=== PATIENT | male | born 1975 | race Caucasian/White ===

== ENCOUNTER 2018-02-09 22:27 | Emergency (ER) | payer MEDICARE, MEDICAID ==
--- NOTE | 2018-02-09 23:26 | EKG REPORT ---
SEVERITY:- ABNORMAL ECG - SINUS RHYTHM CONSIDER ANTEROSEPTAL INFARCT OLD : Confirmed by: Polo Avina MD 09-Feb-2018 23:25:11
--- NOTE | 2018-02-09 23:39 | ER Document Report ---
ED General - General Chief Complaint: Irregular Pulse Stated Complaint: THROAT ISSUES Time Seen by Provider: 02/09/18 22:32 Notes: Patient is a 42-year-old male with a past medical history of PVCs status post ablation 12 days ago at [facility] who presents with an episode of palpitations that started shortly prior to arrival and has since spontaneously resolved. Patient states that he was sitting in his chair when he spontaneously began to feel a fluttering sensation in his neck and chest. He states this feels similar to when he had episodes of palpitations in the past but he had not had one since having the ablation. His at the bedside notes that she feels he becomes quite anxious with these episodes. The patient notes that he was nauseated with it but did not have any chest pain, shortness of breath, diaphoresis or syncope. He did contact EMS and was subsequently transported to the hospital. At the time of my assessment he denies any complaints, states he feels quite well and would like to go home. He does admit to restarting caffeine use today and drank a large amount of tea shortly prior to the onset of this episode. He does admit that he has been told by his psychiatric clinician to discontinue caffeine use. TRAVEL OUTSIDE OF THE [place] IN LAST 30 DAYS: No - Related Data Allergies/Adverse Reactions: No Known Allergies Allergy (Unverified 02/09/18 22:57) Past Medical History - General Information source: Patient - Social History Smoking Status: Current Every Day Smoker Cigarette use (# per day): Yes - 2 packs per day Chew tobacco use (# tins/day): No Smoking Education Provided: Yes - Smoking cessation counseling was provided for 4 minutes at the bedside Frequency of alcohol use: Occasional Drug Abuse: None Lives with: Spouse/Significant other Family History: Reviewed & Not Pertinent Patient has suicidal ideation: No Patient has homicidal ideation: No Renal/ Medical History: Denies: Hx Peritoneal Dialysis Past Surgical History: Reports: Hx Cardiac Surgery Review of Systems - Review of Systems Notes: Constitutional: Negative for fever. HENT: Negative for sore throat. Eyes: Negative for visual changes. Cardiovascular: Positive for palpitations now resolved Respiratory: Negative for shortness of breath. Gastrointestinal: Negative for abdominal pain, vomiting or diarrhea. Genitourinary: Negative for dysuria. Musculoskeletal: Negative for back pain. Skin: Negative for rash. Neurological: Negative for headaches, weakness or numbness. 10 point ROS negative except as marked above and in HPI. Physical Exam - Vital signs Vitals: Temp Pulse Resp BP Pulse Ox 99.1 F 89 16 131/73 H 97 02/09/18 22:44 02/09/18 22:44 02/09/18 22:44 02/09/18 22:44 02/09/18 22:44 Interpretation: Normal Notes: PHYSICAL EXAMINATION: GENERAL: Well-appearing, well-nourished and in no acute distress. HEAD: Atraumatic, normocephalic. EYES: Pupils equal round and reactive to light, extraocular movements intact, sclera anicteric, conjunctiva are normal. ENT: nares patent, oropharynx clear without exudates. Moist mucous membranes. NECK: Normal range of motion, supple without lymphadenopathy LUNGS: Breath sounds clear to auscultation bilaterally and equal. No wheezes rales or rhonchi. HEART: Regular rate and rhythm without murmurs ABDOMEN: Soft, nontender, normoactive bowel sounds. No guarding, no rebound. No masses appreciated. EXTREMITIES: Normal range of motion, no pitting or edema. No cyanosis. NEUROLOGICAL: No focal neurological deficits. Moves all extremities spontaneously and on command. PSYCH: Normal mood, normal affect. SKIN: Warm, Dry, normal turgor, no rashes or lesions noted. Course - Re-evaluation Re-evalutation: 02/09/18 23:38 Patient presents with palpitations but is in no acute distress. Vitals within normal limits at time of arrival. EKG unremarkable with a normal sinus rhythm. Laboratories are unremarkable. Patient denies any chest pain, shortness of breath, or vomiting. Patient did recently have an ablation 2 weeks ago and recently restarted using caffeine to which he attributes his episode tonight. at this time based on exam and history do not suspect a new onset arrhythmia, ACS, acute pulmonary embolus, aortic dissection. Patient encouraged to follow- up with their primary care physician as well as cardiology. At this time will discharge with return precautions and follow-up recommendations. Verbal discharge instructions given a the bedside and opportunity for questions given. Medication warnings reviewed. Patient is in agreement with this plan and has verbalized understanding of return precautions and the need for primary care follow-up in the next 24-72 hours. - Vital Signs Vital signs: Temp Pulse Resp BP Pulse Ox 97.9 F 76 17 119/86 H 94 02/10/18 00:45 02/10/18 00:45 02/10/18 00:45 02/10/18 00:45 02/10/18 00:45 - Laboratory Result Diagrams: 02/09/18 21:48 Laboratory results interpreted by me: 02/09/18 21:48 Potassium 3.5 L - EKG Interpretation by Me Additional EKG results interpreted by me: 02/10/18 03:44 Sinus rhythm. Rate 88. No ST elevations or depressions. QTC is 431. Discharge - Discharge Clinical Impression: Palpitations, Premature ventricular contractions Condition: Good Disposition: HOME, SELF-CARE Additional Instructions: Please follow-up with your primary care doctor or a psychiatric clinician regarding your palpitations. Return if you develop chest pain, shortness of breath, pass out, or have any other symptoms that are worrisome to you. Referrals: FILI GRIFFITH, PHD [Primary Care Provider] - Follow up as needed
[2018-02-09 23:56] LABS: ANION GAP 14 (5-19); BLOOD UREA NITROGEN 8 mg/dL (7-20); CALCIUM 9.7 mg/dL (8.4-10.2); CARBON DIOXIDE 25 mmol/L (22-30); CHLORIDE 106 mmol/L (98-107); GLUCOSE 92 mg/dL (75-110); POTASSIUM 3.5 mmol/L (3.6-5.0); SODIUM 144.7 mmol/L (137-145)
[2018-02-10 00:47] VITALS: BP 119/86
== END 2018-02-10 00:47 | disposition home or self-care (01) ==
LOC: ER 22:27
DX: R00.2 Palpitations (principal); I49.3 Ventricular premature depolarization; F17.210 Nicotine dependence, cigarettes, uncomplicated
CPT/HCPCS: 36415; 80048; 84484; 93005; 93010; 99285

== ENCOUNTER 2019-06-13 17:47 | Emergency (ER) | payer OTHER, MEDICARE, MEDICAID ==
[2019-06-13] MEDS ORDERED: ASPIRIN 81 MG TABLET, CHEWABLE PO ONE (17:50)
[2019-06-13 18:11] LABS: ABSOLUTE EOSINOPHILS # (AUTO) 0.1 10^3/uL (0.0-0.6); ABSOLUTE LYMPHOCYTES (AUTO) 3.5 10^3/uL (0.5-4.7); ABSOLUTE MONOCYTES (AUTO) 0.8 10^3/uL (0.1-1.4); ABSOLUTE NEUT (AUTO) 6.4 10^3/uL (1.7-8.2); BASOPHILS % (AUTO) 0.1 % (0-2); EOSINOPHILS % (AUTO) 0.6 % (0-6); HEMATOCRIT 46.9 % (37.9-51.0); HEMOGLOBIN 16.3 g/dL (13.5-17.0); LYMPHOCYTES % (AUTO) 32.7 % (13-45); MEAN CORPUSCULAR HEMOGLOBIN 30.7 pg (27.0-33.4); MEAN CORPUSCULAR HGB CONC 34.7 g/dL (32.0-36.0); MEAN CORPUSCULAR VOLUME 89 fl (80-97); MONOCYTES % (AUTO) 7.8 % (3-13); PLATELET COUNT 262 10^3/uL (150-450); RED BLOOD COUNT 5.29 10^6/uL (4.35-5.55); RED CELL DISTRIBUTION WIDTH 13.5 % (11.5-14.0); SEGMENTED NEUTROPHILS % (AUTO) 58.8 % (42-78); TOTAL CELLS COUNTED % (AUTO) 100 %; WHITE BLOOD COUNT 10.8 10^3/uL (4.0-10.5)
--- NOTE | 2019-06-13 18:31 | ER Document Report ---
ED General - General Chief Complaint: Dizziness Stated Complaint: HEART PROBLEMS Time Seen by Provider: 06/13/19 18:20 Primary Care Provider: LISSA UNGER MD [ACTIVE STAFF] - Follow up as needed TRAVEL OUTSIDE OF THE [place] IN LAST 30 DAYS: No - HPI Notes: Patient with history of ablation for supraventricular tachycardia last January at [facility] presents for the last 2 weeks he has been having intermittent palpitations where he states he feels like his heart skips a beat and when it happens then he has a heartbeat and it makes him feel lightheaded. But he denies any chest pain. No recent cough congestion or fevers. He does not drink coffee but he drinks approximately 2 L of Pepsi daily. No recent nausea vomiting or fevers. He has a history of hypertension and GERD. He takes antihypertensives and GERD medication daily and has been compliant. - Related Data Allergies/Adverse Reactions: No Known Allergies Allergy (Unverified 02/09/18 22:57) Past Medical History - Social History Smoking Status: Unknown if Ever Smoked Family History: Reviewed & Not Pertinent Patient has suicidal ideation: No Patient has homicidal ideation: No Renal/ Medical History: Denies: Hx Peritoneal Dialysis Past Surgical History: Reports: Hx Cardiac Surgery Review of Systems - Review of Systems Constitutional: No symptoms reported EENT: No symptoms reported Cardiovascular: See HPI Respiratory: No symptoms reported Gastrointestinal: No symptoms reported Genitourinary: No symptoms reported Male Genitourinary: No symptoms reported Musculoskeletal: No symptoms reported Skin: No symptoms reported Hematologic/Lymphatic: No symptoms reported Neurological/Psychological: No symptoms reported Physical Exam - Vital signs Vitals: Resp Pulse Ox 14 98 06/13/19 17:50 06/13/19 17:50 - General General appearance: Appears well, Alert - HEENT Head: Normocephalic, Atraumatic Eyes: Normal Pupils: PERRL - Respiratory Respiratory status: No respiratory distress Chest status: Nontender Breath sounds: Normal Chest palpation: Normal - Cardiovascular Rhythm: Regular Heart sounds: Normal auscultation Murmur: No - Abdominal Inspection: Normal Distension: No distension Bowel sounds: Normal Tenderness: Nontender Organomegaly: No organomegaly - Neurological Neuro grossly intact: Yes Cognition: Normal Orientation: AAOx4 - Psychological Associated symptoms: Normal affect Course - Re-evaluation Re-evalutation: 06/13/19 18:30 Well-appearing patient he denies any chest pain but for the last 2 weeks has been having intermittent palpitations causing the lightheaded at times. He does drink 2 L of Pepsi a day which is a lot of stimulant caffeine. Work-up in progress. 06/13/19 21:39 Patient's work-up shows no concerning findings. He has not had any concerning findings or symptoms in the emergency department. I discussed he needs to cut down on the caffeine intake. He did have borderline normal magnesium and borderline low normal potassium. Provided magnesium as well as potassium in the emergency department to replenish his levels. He requested a cardiology referral will provide that to him today. Return precautions provided. Note, again he states he never had any chest pain does feeling palpitations every now and then for the last 2 weeks. - Vital Signs Vital signs: Temp Pulse Resp BP Pulse Ox 21 H 110/84 95 06/13/19 19:01 06/13/19 19:01 06/13/19 19:01 - Laboratory Result Diagrams: 06/13/19 17:52 06/13/19 17:52 Laboratory results interpreted by me: 06/13/19 06/13/19 17:52 17:52 WBC 10.8 H Potassium 3.2 L Chloride 112 H Carbon Dioxide 21 L Calcium 7.8 L Total Protein 5.9 L Albumin 3.4 L - EKG Interpretation by Dc EKG shows normal: Sinus rhythm Rate: Normal Rhythm: NSR - Normal axis and intervals no concerning ST depressions or elevations. Discharge - Discharge Clinical Impression: Palpitations Condition: Good Disposition: HOME, SELF-CARE Instructions: Palpitations (Irregular or Rapid Heartrate) ([facility]) Additional Instructions: Please follow-up with cardiology referral if the symptoms continue despite decreasing her caffeine intake. You could be considered for a Holter monitor. Referrals: LISSA UNGER MD [ACTIVE STAFF] - Follow up as needed
[2019-06-13 18:38] LABS: ALBUMIN 3.4 g/dL (3.5-5.0); ALKALINE PHOSPHATASE 58 U/L (38-126); ANION GAP 7 (5-19); ASPARTATE AMINO TRANSFERASE 18 U/L (17-59); BILIRUBIN,DIRECT 0.2 mg/dL (0.0-0.4); BILIRUBIN,TOTAL 0.3 mg/dL (0.2-1.3); BLOOD UREA NITROGEN 7 mg/dL (7-20); CALCIUM 7.8 mg/dL (8.4-10.2); CARBON DIOXIDE 21 mmol/L (22-30); CHLORIDE 112 mmol/L (98-107); CREATINE KINASE 79 U/L (55-170); GLUCOSE 83 mg/dL (75-110); POTASSIUM 3.2 mmol/L (3.6-5.0); TOTAL PROTEIN 5.9 g/dL (6.3-8.2)
[2019-06-13 18:49] LABS: CREATINE KINASE MB 0.43 ng/mL (<4.55)
[2019-06-13 18:57] LABS: TROPONIN I < 0.012 ng/mL
[2019-06-13] MEDS ORDERED: POTASSIUM CHLORIDE 10 MEQ CAPSULE.ER PO ONE (20:20)
[2019-06-13] MEDS ORDERED: MAGNESIUM SULFATE/D5W 1 GM/100 ML RTUPB IV ONE (20:48)
[2019-06-13 22:02] VITALS: BP 125/68
--- NOTE | 2019-06-15 00:50 | EKG REPORT ---
SEVERITY:- ABNORMAL ECG - SINUS RHYTHM CONSIDER ANTEROSEPTAL INFARCT : Confirmed by: Adrián Mackay 15-Jun-2019 00:50:17
== END 2019-06-13 21:56 | disposition home or self-care (01) ==
LOC: ER 17:47
DX: R00.2 Palpitations (principal); R42 Dizziness and giddiness; I10 Essential (primary) hypertension; K21.9 Gastro-esophageal reflux disease without esophagitis; Z79.899 Other long term (current) drug therapy; Z98.890 Other specified postprocedural states; Z86.79 Personal history of other diseases of the circulatory system
CPT/HCPCS: 93005; 99285; 96365; 36415; 82553; 82550; 83735; 84443; 85025; 80053; 84484; 93010; J3475

== ENCOUNTER 2019-09-02 22:51 | Emergency (ER) | payer OTHER, MEDICARE ==
--- NOTE | 2019-09-02 23:18 | ER Document Report ---
ED Medical Screen (RME) - General Chief Complaint: Chest Congestion Stated Complaint: CHEST TIGHTNESS Time Seen by Provider: 09/02/19 23:14 Primary Care Provider: FILI GRIFFITH, PHD [Primary Care Provider] - Follow up as needed Notes: 44-year-old male with history of [place] presents for chest tightness, shortness of breath, and feelings of "like I am drowning." Patient states he has 4 blocked arteries around his heart but do not have stents. Patient has recently started seeing a multiplex operator here. Patient also states he has been having a cough but no fevers. Dry cough noted on exam. Lungs sound clear bilaterally. Regular rate and rhythm. I have greeted and performed a rapid initial assessment of this patient. A comprehensive ED assessment and evaluation of the patient, analysis of test results and completion of the medical decision making process with be conducted by additional ED providers. TRAVEL OUTSIDE OF THE [place] IN LAST 30 DAYS: No - Related Data Allergies/Adverse Reactions: No Known Allergies Allergy (Unverified 02/09/18 22:57) Past Medical History Renal/ Medical History: Denies: Hx Peritoneal Dialysis Past Surgical History: Reports: Hx Cardiac Surgery Physical Exam - Vital signs Vitals: Temp Pulse Resp BP Pulse Ox 98.5 F 88 20 123/77 97 09/02/19 23:04 09/02/19 23:04 09/02/19 23:04 09/02/19 23:04 09/02/19 23:04 Course - Vital Signs Vital signs: Temp Pulse Resp BP Pulse Ox 98.5 F 88 20 123/77 97 09/02/19 23:04 09/02/19 23:04 09/02/19 23:04 09/02/19 23:04 09/02/19 23:04 Doctor's Discharge - Discharge Referrals: FILI GRIFFITH, PHD [Primary Care Provider] - Follow up as needed
[2019-09-03 00:31] LABS: ABSOLUTE EOSINOPHILS # (AUTO) 0.1 10^3/uL (0.0-0.6); ABSOLUTE LYMPHOCYTES (AUTO) 2.9 10^3/uL (0.5-4.7); ABSOLUTE NEUT (AUTO) 5.6 10^3/uL (1.7-8.2); BASOPHILS % (AUTO) 0.2 % (0-2); EOSINOPHILS % (AUTO) 0.8 % (0-6); HEMOGLOBIN 15.8 g/dL (13.5-17.0); LYMPHOCYTES % (AUTO) 30.8 % (13-45); MEAN CORPUSCULAR HEMOGLOBIN 30.4 pg (27.0-33.4); MEAN CORPUSCULAR HGB CONC 34.4 g/dL (32.0-36.0); MEAN CORPUSCULAR VOLUME 89 fl (80-97); PLATELET COUNT 247 10^3/uL (150-450); RED BLOOD COUNT 5.19 10^6/uL (4.35-5.55); RED CELL DISTRIBUTION WIDTH 13.6 % (11.5-14.0); SEGMENTED NEUTROPHILS % (AUTO) 58.2 % (42-78); TOTAL CELLS COUNTED % (AUTO) 100 %; WHITE BLOOD COUNT 9.6 10^3/uL (4.0-10.5)
[2019-09-03 00:33] LABS: ALBUMIN 4.1 g/dL (3.5-5.0); ALKALINE PHOSPHATASE 64 U/L (38-126); ANION GAP 11 (5-19); ASPARTATE AMINO TRANSFERASE 20 U/L (17-59); BILIRUBIN,DIRECT 0.2 mg/dL (0.0-0.4); BILIRUBIN,TOTAL 0.3 mg/dL (0.2-1.3); BLOOD UREA NITROGEN 8 mg/dL (7-20); CALCIUM 9.3 mg/dL (8.4-10.2); CARBON DIOXIDE 24 mmol/L (22-30); CHLORIDE 103 mmol/L (98-107); GLUCOSE 100 mg/dL (75-110); POTASSIUM 3.8 mmol/L (3.6-5.0); TOTAL PROTEIN 7.2 g/dL (6.3-8.2)
--- NOTE | 2019-09-03 00:45 | RADIOLOGY REPORT (SQ) ---
EXAM DESCRIPTION: [facility]: XR CHEST 2 VIEWS Views: 2 CLINICAL HISTORY: 44 years Male, chest pain, coughing COMPARISON: None. FINDINGS: There is mild bilateral central interstitial prominence. No focal consolidation. No pneumothorax or pleural effusion. Cardiomediastinal silhouette is within normal limits. Bony structures are unremarkable for age. IMPRESSION: 1. No focal infiltrates. 2. Mild central interstitial prominence may represent atypical interstitial pneumonia such as viral pneumonia. Please correlate with clinical symptoms.
[2019-09-03] MEDS ORDERED: DOXYCYCLINE HYCLATE 100 MG TABLET PO ONE (02:29)
[2019-09-03 03:04] VITALS: BP 101/70
--- NOTE | 2019-09-03 03:09 | ER Document Report ---
ED General - General Chief Complaint: Shortness Of Breath Stated Complaint: CHEST TIGHTNESS Time Seen by Provider: 09/02/19 23:14 Primary Care Provider: FILI GRIFFITH, PHD [ALLIED HEALTH PROFESSIONAL] - Follow up as needed TRAVEL OUTSIDE OF THE [place] IN LAST 30 DAYS: No - HPI Notes: Patient is a 44-year-old gentleman who presents emergency department for evaluation of a tightness in his chest. He states over the last 2 days he has been coughing. His cough is been primarily nonproductive. He states that tonight while laying on his couch he felt a tightness across his entire chest. He was at rest. He states that he has felt this way in the past with upper respiratory infections and cough, became concerned because of his coronary artery disease history, so he presents to the ED for further evaluation. He states that symptoms lasted for about an hour, he denies any chest tightness at all. The tightness was across his entire chest without radiation. He denies any associated nausea, diaphoresis, near syncope. He states he has had some cough that has been significant enough to cause posttussive emesis. No diarrhea. - Related Data Allergies/Adverse Reactions: No Known Allergies Allergy (Unverified 02/09/18 22:57) Home Medications: metoprolol. losartan-new Past Medical History - General Information source: Patient - Social History Smoking Status: Current Every Day Smoker Frequency of alcohol use: Rare Drug Abuse: None Family History: Reviewed & Not Pertinent Patient has suicidal ideation: No Patient has homicidal ideation: No - Past Medical History Cardiac Medical History: Reports: Hx Coronary Artery Disease, Hx Hypertension - Gami to Renal/ Medical History: Denies: Hx Peritoneal Dialysis GI Medical History: Reports: Hx Gastroesophageal Reflux Disease Past Surgical History: Reports: Hx Cardiac Catheterization, Hx Cardiac Surgery - abalation, Hx Orthopedic Surgery Review of Systems - Review of Systems Constitutional: No symptoms reported EENT: No symptoms reported Cardiovascular: See HPI Respiratory: See HPI Gastrointestinal: See HPI Genitourinary: No symptoms reported Musculoskeletal: No symptoms reported Skin: No symptoms reported Neurological/Psychological: No symptoms reported Physical Exam - Vital signs Vitals: Temp Pulse Resp BP Pulse Ox 98.5 F 88 20 123/77 97 09/02/19 23:04 09/02/19 23:04 09/02/19 23:04 09/02/19 23:04 12/18/19 23:04 - Notes Notes: Vital signs reviewed, please refer to chart. Head is normocephalic, atraumatic. Pupils equal round, reactive to light. Neck is supple without meningismus. Heart is regular rate and rhythm. Lungs are clear to auscultation bilaterally. Abdomen is soft, nontender, normoactive bowel sounds throughout. Extremities without cyanosis, clubbing. Posterior calves are nontender. Peripheral pulses are equal. Skin is warm and dry. Patient is awake, alert, neurological exam is nonfocal. Course - Re-evaluation Re-evalutation: 09/03/19 03:10 Patient presents emergency department for evaluation of chest tightness. He has had a cough and posttussive emesis. His laboratory investigations were unremarkable, EKG failed to reveal any signs of ST elevation. Troponin was completely undetectable. Patient is already had a heart catheterization, which showed evidence of disease but no need for intervention. This does not seem typical cardiac pain, particularly given his cough. He had findings consistent on x-ray with a possible pneumonia. Given his comorbidities, I am inclined to t reat this. He is given his first dose of doxycycline. I will send him home with a prescription for same. He is to follow-up with primary care, return to the ED with worsening or new concerning symptoms of any sort. - Vital Signs Vital signs: Temp Pulse Resp BP Pulse Ox 97.8 F 88 15 101/70 96 09/03/19 01:01 09/02/19 23:10 09/03/19 03:01 09/03/19 03:01 09/03/19 03:01 - Laboratory Result Diagrams: 09/03/19 00:00 09/03/19 00:00 - Diagnostic Test Radiology reviewed: Image reviewed, Reports reviewed Radiology results interpreted by me: 09/03/19 03:10 Chest X-Ray 09/02/19 23:14 IMPRESSION: 1. No focal infiltrates. 2. Mild central interstitial prominence may represent atypical interstitial pneumonia such as viral pneumonia. Please correlate with clinical symptoms. - EKG Interpretation by Me Additional EKG results interpreted by me: 09/03/19 03:11 Sinus mechanism with a rate of 87 bpm, frequent PVCs noted. Normal axis and intervals. Nonspecific ST changes, but no ST elevation concerning for infarction. Discharge - Discharge Clinical Impression: Chest tightness Pneumonia Qualifiers: Laterality: bilateral Lung location: unspecified part of lung Condition: Stable Disposition: HOME, SELF-CARE Instructions: Chest Pain of Unclear Cause ([facility]), Pneumonia ([facility]) Additional Instructions: Take all the antibiotics as prescribed until gone. Follow-up with primary care next week. Return to the emergency department with worsening or new concerning symptoms of any sort. Referrals: FILI GRIFFITH, PHD [ALLIED HEALTH PROFESSIONAL] - Follow up as needed
--- NOTE | 2019-09-03 08:48 | EKG REPORT ---
SEVERITY:- ABNORMAL ECG - SINUS RHYTHM MULTIPLE VENTRICULAR PREMATURE COMPLEXES CONSIDER ANTEROSEPTAL INFARCT BORDERLINE T ABNORMALITIES, INFERIOR LEADS : Confirmed by: Adrián Mackay 03-Sep-2019 08:46:32
== END 2019-09-03 03:23 | disposition home or self-care (01) ==
LOC: ER 22:51
DX: J18.9 Pneumonia, unspecified organism (principal); R07.9 Chest pain, unspecified; R06.02 Shortness of breath; R05 Cough; R11.10 Vomiting, unspecified; F17.200 Nicotine dependence, unspecified, uncomplicated; I25.10 Atherosclerotic heart disease of native coronary artery without angina pectoris
CPT/HCPCS: 36415; 71046; 80053; 84484; 85025; 93005; 93010; 99285

== ENCOUNTER 2019-09-09 12:25 | Emergency (ER) | payer OTHER, MEDICARE ==
[2019-09-09 13:02] LABS: ABSOLUTE EOSINOPHILS # (AUTO) 0.1 10^3/uL (0.0-0.6); ABSOLUTE LYMPHOCYTES (AUTO) 3.2 10^3/uL (0.5-4.7); ABSOLUTE MONOCYTES (AUTO) 0.9 10^3/uL (0.1-1.4); ABSOLUTE NEUT (AUTO) 4.2 10^3/uL (1.7-8.2); BASOPHILS % (AUTO) 0.5 % (0-2); EOSINOPHILS % (AUTO) 0.9 % (0-6); HEMATOCRIT 48.4 % (37.9-51.0); HEMOGLOBIN 16.6 g/dL (13.5-17.0); LYMPHOCYTES % (AUTO) 37.5 % (13-45); MEAN CORPUSCULAR HEMOGLOBIN 30.4 pg (27.0-33.4); MEAN CORPUSCULAR HGB CONC 34.4 g/dL (32.0-36.0); MEAN CORPUSCULAR VOLUME 89 fl (80-97); PLATELET COUNT 257 10^3/uL (150-450); RED BLOOD COUNT 5.47 10^6/uL (4.35-5.55); RED CELL DISTRIBUTION WIDTH 13.6 % (11.5-14.0); SEGMENTED NEUTROPHILS % (AUTO) 50.1 % (42-78); TOTAL CELLS COUNTED % (AUTO) 100 %; WHITE BLOOD COUNT 8.4 10^3/uL (4.0-10.5)
--- NOTE | 2019-09-09 13:03 | ER Document Report ---
ED Medical Screen (RME) - General Chief Complaint: Palpitations Stated Complaint: PALPATATIONS Time Seen by Provider: 09/09/19 12:55 Primary Care Provider: REYMUNDO LOZANO MD [Primary Care Provider] - Follow up as needed Mode of Arrival: Medic Information source: Patient Notes: 44-year-old male with history of cardiac disease ablations presents emergency department after he felt dizzy in the shower had a lay down. Reports history of cardiac disease for many years. Reports his father and his grandfather both had a heart attack at young age. Patient reports he has had an ablation last December. He reports he has not had a cardiac cath since 2009. Reports he is been treated for pneumonia this past week is taking antibiotics for that. Reports he feels better cough and phlegm up. Patient reports he has PVCs like every 30 beats. No complaints of chest pain. I have greeted and performed a rapid initial assessment of this patient. A comprehensive ED assessment and evaluation of the patient, analysis of test results and completion of the medical decision making process will be conducted by additional ED providers. TRAVEL OUTSIDE OF THE [place] IN LAST 30 DAYS: No - Related Data Allergies/Adverse Reactions: No Known Allergies Allergy (Unverified 02/09/18 22:57) Past Medical History - Social History Frequency of alcohol use: None Drug Abuse: None - Past Medical History Cardiac Medical History: Reports: Hx Coronary Artery Disease, Hx Hypertension - Gami to Renal/ Medical History: Denies: Hx Peritoneal Dialysis GI Medical History: Reports: Hx Gastroesophageal Reflux Disease Past Surgical History: Reports: Hx Cardiac Catheterization, Hx Cardiac Surgery, Hx Orthopedic Surgery Physical Exam - Vital signs Vitals: Temp 99.0 F 09/09/19 12:37 Course - Vital Signs Vital signs: Temp Pulse Resp BP Pulse Ox 99.0 F 09/09/19 12:37 - Laboratory Result Diagrams: 09/09/19 12:35 09/09/19 12:35 Doctor's Discharge - Discharge Referrals: REYMUNDO LOZANO MD [Primary Care Provider] - Follow up as needed
[2019-09-09 13:10] LABS: ALBUMIN 4.4 g/dL (3.5-5.0); ALKALINE PHOSPHATASE 75 U/L (38-126); ANION GAP 11 (5-19); ASPARTATE AMINO TRANSFERASE 21 U/L (17-59); BILIRUBIN,DIRECT 0.2 mg/dL (0.0-0.4); BILIRUBIN,TOTAL 0.8 mg/dL (0.2-1.3); BLOOD UREA NITROGEN 9 mg/dL (7-20); CALCIUM 9.6 mg/dL (8.4-10.2); CARBON DIOXIDE 25 mmol/L (22-30); CHLORIDE 107 mmol/L (98-107); CREATINE KINASE 155 U/L (55-170); GLUCOSE 89 mg/dL (75-110); POTASSIUM 3.8 mmol/L (3.6-5.0); TOTAL PROTEIN 7.4 g/dL (6.3-8.2)
[2019-09-09 13:20] LABS: CREATINE KINASE MB 0.65 ng/mL (<4.55); TROPONIN I < 0.012 ng/mL
--- NOTE | 2019-09-09 13:36 | RADIOLOGY REPORT (SQ) ---
EXAM DESCRIPTION: CHEST SINGLE VIEW COMPLETED DATE/TIME: 09/09/2019 1:17 pm REASON FOR STUDY: hx pneumonia, dizziness, CAD hx COMPARISON: 09/03/2019 EXAM PARAMETERS: NUMBER OF VIEWS: One view. TECHNIQUE: Single frontal radiographic view of the chest acquired. RADIATION DOSE: NA LIMITATIONS: None. FINDINGS: LUNGS AND PLEURA: No opacities, masses or pneumothorax. No pleural effusion. MEDIASTINUM AND HILAR STRUCTURES: No masses. Contour normal. HEART AND VASCULAR STRUCTURES: Heart normal in size. Normal vasculature. BONES: No acute findings. HARDWARE: None in the chest. OTHER: No other significant finding. IMPRESSION: NO ACUTE RADIOGRAPHIC FINDING IN THE CHEST. TECHNICAL DOCUMENTATION: JOB ID: [id number] [employer]- All Rights Reserved Reading location - IP/workstation name: [email or web address]
--- NOTE | 2019-09-09 14:45 | ER Document Report ---
ED Cardiac - General Chief Complaint: Palpitations Stated Complaint: PALPATATIONS Time Seen by Provider: 09/09/19 12:55 Primary Care Provider: REYMUNDO LOZANO MD [NO LOCAL MD] - Follow up as needed KINGSLEY RAMON MD [ACTIVE STAFF] - Follow up as needed Mode of Arrival: Ambulatory TRAVEL OUTSIDE OF THE [place] IN LAST 30 DAYS: No - Related Data Allergies/Adverse Reactions: No Known Allergies Allergy (Unverified 02/09/18 22:57) Past Medical History - General Information source: Patient - Social History Smoking Status: Current Every Day Smoker Frequency of alcohol use: None Drug Abuse: None Family History: Reviewed & Not Pertinent Patient has suicidal ideation: No Patient has homicidal ideation: No - Past Medical History Cardiac Medical History: Reports: Hx Coronary Artery Disease, Hx Hypertension - Gami to Renal/ Medical History: Denies: Hx Peritoneal Dialysis GI Medical History: Reports: Hx Gastroesophageal Reflux Disease Past Surgical History: Reports: Hx Cardiac Catheterization, Hx Cardiac Surgery, Hx Orthopedic Surgery Physical Exam - Vital signs Vitals: Temp 99.0 F 09/09/19 12:37 - General General appearance: Appears well, Alert In distress: None - HEENT Head: Normocephalic, Atraumatic Eyes: Normal Nasal: Normal Mouth/Lips: Normal Mucous membranes: Normal Neck: Normal, Supple. No: Lymphadenopathy - Respiratory Respiratory status: No respiratory distress Chest status: Nontender Breath sounds: Normal. No: Rales, Rhonchi, Stridor, Wheezing Chest palpation: Normal - Cardiovascular Rhythm: Regular Heart sounds: Normal auscultation, S1 appreciated, S2 appreciated Murmur: No - Abdominal Inspection: Normal Distension: No distension Bowel sounds: Normal Tenderness: Nontender - Back Back: Normal, Nontender - Extremities General upper extremity: Normal inspection, Normal strength General lower extremity: Normal inspection, Normal strength - Neurological Neuro grossly intact: Yes Cognition: Normal [place] Coma Scale Eye Opening: Spontaneous [place] Coma Scale Verbal: Oriented [place] Coma Scale Motor: Obeys Commands [place] Coma Scale Total: 15 - Psychological Associated symptoms: Normal affect, Normal mood - Skin Skin Temperature: Warm Skin Moisture: Dry Skin Color: Normal Course - Re-evaluation Re-evalutation: 09/09/19 17:48 Patient continues with stable vital signs at this time. Patient without any chest pain symptoms, dyspnea, or lightheadedness. Patient without any ectopy noted on heart monitor. Patient does have a history of palpitations for which he has been seen in the past. Patient has previously had a Holter monitor which only demonstrated occasional PVCs. Patient is still pending an outpatient sleep study, this test was postponed due to his recent pneumonia. Chest x-ray reviewed today, no evidence of pneumonia at this time. Patient denies any heada nash symptoms. Patient without any elevated delta troponin at this time. 09/09/19 18:[address] Ramon regarding patient presentation and concern about hypotension. Recommends having patient stop the valsartan and increasing the metoprolol to 100 mg twice a day. Also recommends having patient come into his office on Saturday for repeat examination. Orthostatics performed at bedside. [place] pressure was 118/86 with heart rate of 82, sitting pressure 121/94 heart rate 77, standing pressure 119/72 heart rate 92. Patient not hypotensive at this time. 09/09/19 20:31 - Vital Signs Vital signs: Temp Pulse Resp BP Pulse Ox 98.1 F 69 18 121/77 96 09/09/19 18:18 09/09/19 18:18 09/09/19 18:18 09/09/19 18:18 09/09/19 18:18 - Laboratory Result Diagrams: 09/09/19 12:35 09/09/19 12:35 Laboratory results interpreted by me: Labs- Entire Visit 09/09/19 09/09/19 09/09/19 12:35 12:35 12:35 WBC 8.4 RBC 5.47 Hgb 16.6 Hct 48.4 MCV 89 MCH 30.4 MCHC 34.4 RDW 13.6 Plt Count 257 Lymph % (Auto) 37.5 [place] % (Auto) 11.0 Eos % (Auto) 0.9 Baso % (Auto) 0.5 Absolute Neuts (auto) 4.2 Absolute Lymphs (auto) 3.2 Absolute Monos (auto) 0.9 Absolute Eos (auto) 0.1 Absolute Basos (auto) 0.0 Seg Neutrophils % 50.1 Sodium 142.6 Potassium 3.8 Chloride 107 Carbon Dioxide 25 Anion Gap 11 BUN 9 Creatinine 0.88 Est GFR ( Amer) > 60 Est GFR (MDRD) Non-Af > 60 Glucose 89 Calcium 9.6 Total Bilirubin 0.8 Direct Bilirubin 0.2 Neonat Total Bilirubin Not Reportable Neonat Direct Bilirubin Not Reportable Neonat Indirect Bili Not Reportable AST 21 ALT 19 Alkaline Phosphatase 75 Creatine Kinase 155 CK-MB (CK-2) 0.65 Troponin I < 0.012 Total Protein 7.4 Albumin 4.4 09/09/19 15:35 WBC RBC Hgb Hct MCV MCH MCHC RDW Plt Count Lymph % (Auto) [place] % (Auto) Eos % (Auto) Baso % (Auto) Absolute Neuts (auto) Absolute Lymphs (auto) Absolute Monos (auto) Absolute Eos (auto) Absolute Basos (auto) Seg Neutrophils % Sodium Potassium Chloride Carbon Dioxide Anion Gap BUN Creatinine Est GFR ( Amer) Est GFR (MDRD) Non-Af Glucose Calcium Total Bilirubin Direct Bilirubin Neonat Total Bilirubin Neonat Direct Bilirubin Neonat Indirect Bili AST ALT Alkaline Phosphatase Creatine Kinase CK-MB (CK-2) Troponin I < 0.012 Total Protein Albumin - Diagnostic Test Radiology reviewed: Reports reviewed - EKG Interpretation by Me EKG shows normal: Sinus rhythm When compared to previous EKG there are: No significant change Additional EKG results interpreted by me: 09/09/19 20:31 QTC 421 Discharge - Discharge Clinical Impression: Light-headed, Palpitations Hypotension Qualifiers: Hypotension type: unspecified hypotension type Qualified Code(s): I95.9 - Hypotension, unspecified Condition: Stable Disposition: HOME, SELF-CARE Instructions: Hypotension ([facility]), Palpitations (Irregular or Rapid Heartrate) ([facility]) Additional Instructions: Return immediately for any new or worsening symptoms Followup with your primary care provider, call tomorrow to make a followup appointment Discontinue taking the valsartan. Continue to take the metoprolol at 100 mg twice a day that you were previously prescribed. Dr. Ramon would like to see you in his office on Saturday morning. Referrals: REYMUNDO LOZANO MD [NO LOCAL MD] - Follow up as needed KINGSLEY RAMON MD [ACTIVE STAFF] - Follow up as needed
[2019-09-09 18:19] VITALS: BP 121/77
--- NOTE | 2019-09-09 20:08 | EKG REPORT ---
SEVERITY:- ABNORMAL ECG - SINUS RHYTHM CONSIDER ANTEROSEPTAL INFARCT : Confirmed by: Dulce Sellers MD 09-Sep-2019 20:07:36
== END 2019-09-09 18:16 | disposition home or self-care (01) ==
LOC: ER 12:25
DX: R00.2 Palpitations (principal); I95.9 Hypotension, unspecified; R42 Dizziness and giddiness; R05 Cough; I25.10 Atherosclerotic heart disease of native coronary artery without angina pectoris; I10 Essential (primary) hypertension; F17.200 Nicotine dependence, unspecified, uncomplicated; Z79.899 Other long term (current) drug therapy
CPT/HCPCS: 36415; 71045; 80053; 82550; 82553; 84484; 85025; 93005; 93010; 99285